=== PATIENT | male | born 1950 | race Caucasian/White ===

== ENCOUNTER 2023-01-31 10:21 | Day surgery (SDC) | payer MEDICARE ==
--- NOTE | 2023-01-31 08:01 | HP ---
DATE OF SURGERY: 01/31/2023 HISTORY OF PRESENT ILLNESS: The patient is a 72-year-old with last colonoscopy two or three years ago. History of colon cancer, had sigmoid resection at [facility], [place]. No bloody stools. No change in bowel movements. No new pain. Family history negative for colon cancer. He is in need of follow up screening colonoscopy. PAST MEDICAL HISTORY: Colon cancer. Diabetes. Overactive bladder. Hypertension. Hyperlipidemia. PAST SURGICAL HISTORY: Colon resection. Hernia repair in the past. Colonoscopy. MEDICATIONS: Simvastatin, metformin, losartan, potassium, gabapentin, Capsaicin topical cream, aspirin, amlodipine. ALLERGIES: NKDA. FAMILY HISTORY: Negative for colon cancer. SOCIAL HISTORY: No smoking. Occasional alcohol use. REVIEW OF SYSTEMS: Fourteen systems reviewed. No chest pain or palpitations. Other systems negative or noncontributory as above and per preadmission questionnaire. PHYSICAL EXAMINATION: Height 6'1". BMI 28. GENERAL: No acute distress. HEENT: Sclerae nonicteric. EOMI. Oral mucous membranes moist. NECK: No JVD. CHEST: Equal excursion, nonlabored breathing. CVS: Regular rate and rhythm. ABDOMEN: Soft. No peritoneal signs. EXTREMITIES: No significant edema. NEURO: Alert, oriented, moving extremities symmetrically. RECTAL: Deferred timed to endoscopy exam. PSYCH: Appropriate mood and affect. SKIN: Dry. IMPRESSION: History of colon cancer. He is in need of follow up colonoscopy. I feel the patient is a candidate. Risks and benefits explained the procedure in detail including but not limited to risk of bleeding or infection, risk of bowel injury or perforation possibly requiring further procedure, risk of missed or nondiagnosis or incomplete exam possibly requiring barium enema, other studies or procedures, general risk of anesthesia or sedation, risk of bowel prep but not limited to, consent obtained. Will proceed with outpatient colonoscopy under MAC anesthesia. Otherwise continue medications for diabetes, hypertension and hyperlipidemia.
[2023-01-31 10:39] VITALS: RESP 18
[2023-01-31] MEDS ORDERED: Lactated Ringers 1,000 ML IV ONE (10:52)
[2023-01-31] MEDS ORDERED: Lactated Ringers 1,000 ML IV SCH (11:00)
[2023-01-31] MEDS ORDERED: Xylocaine-Mpf 2% 5 Ml Vial ONE (13:41)
[2023-01-31] MEDS ORDERED: DIPRIVAN 200 MG/20 ML IV ONE (13:41)
[2023-01-31] MEDS ORDERED: Versed 2 MG/2 ML Injection ONE (13:41)
[2023-01-31 14:33] VITALS: TEMP 97.6; O2SAT 94
[2023-01-31 14:46] VITALS: BP 132/75; PULSE 68
--- NOTE | 2023-02-01 10:13 | OP ---
SURGERY DATE/TIME: 01/31/2023 1343 PREOPERATIVE DIAGNOSIS: Prior history of colon cancer, history of polyp, needs follow up colonoscopy. POSTOPERATIVE DIAGNOSES: 1) Small early polyp versus hyperplastic lesion transverse colon. 2) Fair bowel prep. 3) ASA Class II. PROCEDURES: 1) Colonoscopy to cecum. 2) Hot biopsy polypectomy piecemeal transverse colon early polyp versus hyperplastic lesion. 3) Cold biopsy tattoo area adjacent to prior polypectomy area. No signs of gross recurrence. SURGEON: Dr. Dioni Brown. ANESTHESIA: MAC. ESTIMATED BLOOD LOSS: Minimal. INDICATIONS: As noted above. Risks and benefits explained in detail but not limited to and consent obtained. DESCRIPTION OF PROCEDURE AND FINDINGS: The patient is taken to the endoscopy room. MAC anesthesia induced. After official time out and no disagreement with planned procedure, digital rectal exam did not reveal any rectal masses. Video colonoscope inserted and passed up through the slightly tortuous sigmoid, descending, transverse and ascending colon initially requiring two different staff members pushing on his abdomen and positioning on his back to be able to pass to the cecum. Appendiceal orifice and valve well visualized. Prep overall was fair a little bit of liquidy semisolid stool throughout the colon limiting the exam for very small lesions this is suctioned irrigated as clear as possible. The scope is carefully withdrawn over the next nine minutes. There was a small polyp in the transverse colon versus hyperplastic lesion removed piecemeal polypectomy hot biopsy forceps with brief bursts of cautery. Good hemostasis noted. Otherwise no signs of any large polyps, masses or obstructing lesions. He did have an area that had been tattooed down in the rectal area. Cold biopsy of the area. There was no gross evidence of recurrence. Cold biopsy taken of the area for completeness. I will see him back in the office next week.
== END 2023-01-31 14:45 | disposition home or self-care (01) ==
LOC: SDC 10:21
PROVIDERS: ATTEND Surgery
DX: Z08 Encounter for follow-up examination after completed treatment for malignant neoplasm (principal); Z85.038 Personal history of other malignant neoplasm of large intestine; Z86.010 Personal history of colon polyps; E11.9 Type 2 diabetes mellitus without complications; D12.3 Benign neoplasm of transverse colon
CPT/HCPCS: 82947; 99100; J2250; J2704